=== PATIENT | female | born 1935 | race African-American/Black ===

== ENCOUNTER 2018-07-22 23:57 | Emergency (ER) | payer MEDICARE, MEDICAID ==
[~2018-07-22] VITALS: Ht 162.6 cm; Wt 54.5 kg
[~2018-07-22 23:57] MED LIST: AMLO5TAB88 PO; ASPI-1159 PO; ATOR10TA69 PO; BENA20TA10 PO; CLOP75TA16 PO; DIGO125T82 PO; FURO10VI3 PO; NITR0.4T SL; POTA20TA82 PO
[2018-07-23 01:58] LABS: BASOPHILS % 0.8 % (0.0-2.0); EOSINOPHILS % 1.6 % (0.0-5.0); HEMATOCRIT. 33.1 % (36.0-48.0); HEMOGLOBIN. 11.2 g/dL (12.0-16.0); LYMPHOCYTES % 24.9 % (20.0-50.0); MEAN CORPUSCULAR HEMOGLOBIN 33.6 pg (28.0-32.0); MEAN CORPUSCULAR VOLUME 98.8 fL (81.0-99.0); MEAN PLATELET VOLUME 8.6 fl (7.4-10.4); MONOCYTES % 7.9 % (2.0-8.0); NEUTROPHILS % 64.8 % (40.0-76.0); PLATELET 324 x1000/uL (130-400); RED BLOOD CELL COUNT 3.35 mill/uL (4.2-5.4); RED CELL DISTRIBUTION WIDTH 12.3 % (11.6-14.6)
[2018-07-23 02:03] LABS: PARTIAL THROMBOPLASTIN TIME 24.7 sec (23.4-31.0); PROTHROMBIN TIME 10.3 sec (9.1-11.1)
[2018-07-23 02:06] LABS: CHLORIDE 103 mEq/L (98-107)
[2018-07-23 02:11] LABS: ETHANOL BLOOD 45 mg/dL
[2018-07-23 04:12] VITALS: BP 118/87
== END 2018-07-23 04:18 | disposition left against medical advice (07) ==
LOC: ER 07-23 00:17
DX: F10.129 Alcohol abuse with intoxication, unspecified (principal); R40.4 Transient alteration of awareness; I69.351 Hemiplegia and hemiparesis following cerebral infarction affecting right dominant side; I25.2 Old myocardial infarction; J45.909 Unspecified asthma, uncomplicated; I11.0 Hypertensive heart disease with heart failure; I50.9 Heart failure, unspecified; I45.10 Unspecified right bundle-branch block; Y90.2 Blood alcohol level of 40-59 mg/100 ml; Z79.82 Long term (current) use of aspirin
CPT/HCPCS: 36415; 70450; 71045; 80053; 83880; 84484; 85025; 85610; 85730; 93005; 99285; G0482

== ENCOUNTER 2018-10-15 12:09 | Inpatient (IN) | payer MEDICARE, MEDICAID ==
[~2018-10-15] VITALS: Ht 157.5 cm; Wt 45.4 kg
[2018-10-15] MEDS ORDERED: ACETAMINOPHEN 325MG TABLET PO STA (14:19)
[2018-10-15] MEDS ORDERED: ASPIRIN 81MG TABLET PO ONE (14:30)
[2018-10-15 14:56] LABS: BASOPHILS % 0.7 % (0.0-2.0); EOSINOPHILS % 0.4 % (0.0-5.0); HEMATOCRIT. 33.3 % (36.0-48.0); HEMOGLOBIN. 11.3 g/dL (12.0-16.0); LYMPHOCYTES % 8.1 % (20.0-50.0); MEAN CORPUSCULAR HEMOGLOBIN 32.4 pg (28.0-32.0); MEAN CORPUSCULAR VOLUME 95.1 fL (81.0-99.0); MEAN PLATELET VOLUME 8.7 fl (7.4-10.4); MONOCYTES % 8.9 % (2.0-8.0); NEUTROPHILS % 81.9 % (40.0-76.0); PLATELET 314 x1000/uL (130-400); RED CELL DISTRIBUTION WIDTH 12.7 % (11.6-14.6)
[2018-10-15 15:06] LABS: CHLORIDE 103 mEq/L (98-107)
[2018-10-15 15:08] LABS: D-DIMER 0.67 mg/L FEU (<0.50); INR 1.1; PARTIAL THROMBOPLASTIN TIME 30.1 sec (23.4-31.0)
[2018-10-15 15:28] LABS: DIGOXIN 1.2 ng/mL (0.9-2.0)
[2018-10-15] MEDS ORDERED: IOHEXOL-350 100 ML BOTTLE ONE (16:43)
[2018-10-15] MEDS ORDERED: ONDANSETRON HCL 4MG/2ML INJ IV PRN (16:45)
[2018-10-15 17:41] LABS: CREATINE KINASE MB FRACTION 1.9 ng/mL (0.5-3.6)
[2018-10-15 21:00] VITALS: BP 118/68
[2018-10-15] MEDS: ATORVASTATIN CALCIUM 20MG TABLET PO SCH (21:58)
[2018-10-15] MEDS: ACETAMINOPHEN 325MG TABLET PO PRN (21:58)
[2018-10-15 22:00] VITALS: BP 130/80
[2018-10-15] MEDS: LORAZEPAM 1MG TABLET PO PRN (23:45)
[2018-10-16] VITALS (7 sets, daily range): BP systolic 100–183; BP diastolic 57–71
[2018-10-16] MEDS: HYDROCODONE/ACETAMINOPHEN 5/325MG TABLET PO PRN ×3 (00:04→18:43)
[2018-10-16] MEDS: ALLOPURINOL 100 MG TABLET PO SCH (09:33)
[2018-10-16] MEDS: CLOPIDOGREL 75MG TABLET PO SCH (09:33)
[2018-10-16] MEDS: ASPIRIN 81MG TABLET PO SCH (09:33)
[2018-10-16] MEDS: ENOXAPARIN 30MG/0.3ML SYR SUBCUT SCH (09:34)
[2018-10-16] MEDS: FUROSEMIDE 40MG/4ML VIAL IVP SCH ×3 (09:34→17:00)
[2018-10-16 10:54] LABS: MEAN CORPUSCULAR HEMOGLOBIN 31.8 pg (28.0-32.0); MEAN CORPUSCULAR VOLUME 95.6 fL (81.0-99.0); PLATELET 321 x1000/uL (130-400); RED BLOOD CELL COUNT 3.77 mill/uL (4.2-5.4); RED CELL DISTRIBUTION WIDTH 12.5 % (11.6-14.6)
[2018-10-16 11:28] LABS: CHLORIDE 107 mEq/L (98-107)
[2018-10-16 12:18] LABS: PLATELET ESTIMATE NORMAL
[2018-10-16] MEDS ORDERED: LIDOCAINE HCL 1% 20ML VIAL (Pyxis) INJ INFIL NR (15:30)
[2018-10-16] MEDS: ATORVASTATIN CALCIUM 20MG TABLET PO SCH (20:43)
[2018-10-17 00:10] VITALS: BP 130/56
[2018-10-17] MEDS: HYDROCODONE/ACETAMINOPHEN 5/325MG TABLET PO PRN ×3 (02:20→20:28)
[2018-10-17 04:54] VITALS: BP 138/69
[2018-10-17 06:40] LABS: CHLORIDE 105 mEq/L (98-107)
[2018-10-17 06:47] LABS: BASOPHILS % 0.8 % (0.0-2.0); EOSINOPHILS % 1.3 % (0.0-5.0); HEMATOCRIT. 29.1 % (36.0-48.0); HEMOGLOBIN. 9.9 g/dL (12.0-16.0); LYMPHOCYTES % 15.2 % (20.0-50.0); MEAN CORPUSCULAR HEMOGLOBIN 32.1 pg (28.0-32.0); MEAN CORPUSCULAR VOLUME 94.3 fL (81.0-99.0); MONOCYTES % 13.9 % (2.0-8.0); NEUTROPHILS % 68.8 % (40.0-76.0); PLATELET 320 x1000/uL (130-400); RED BLOOD CELL COUNT 3.09 mill/uL (4.2-5.4); RED CELL DISTRIBUTION WIDTH 12.5 % (11.6-14.6)
[2018-10-17 08:00] VITALS: BP 136/69
[2018-10-17] MEDS: CLOPIDOGREL 75MG TABLET PO SCH (10:54)
[2018-10-17] MEDS: ENOXAPARIN 30MG/0.3ML SYR SUBCUT SCH (10:54)
[2018-10-17] MEDS: FUROSEMIDE 40MG/4ML VIAL IVP SCH ×2 (10:54→20:21)
[2018-10-17] MEDS: ALLOPURINOL 100 MG TABLET PO SCH (10:54)
[2018-10-17] MEDS: ASPIRIN 81MG TABLET PO SCH (10:54)
[2018-10-17 12:00] VITALS: BP 141/70
[2018-10-17 16:00] VITALS: BP 122/57
[2018-10-17] MEDS ORDERED: CEFTRIAXONE 2 G PREMIX 50 ML IV SCH (17:00)
[2018-10-17] MEDS ORDERED: VANCOMYCIN 750 MG PREMIX 150 ML IV NR (18:00)
[2018-10-17 20:00] VITALS: BP 135/58
[2018-10-17] MEDS: METRONIDAZOLE 500MG TABLET PO SCH (20:21)
[2018-10-17] MEDS: ATORVASTATIN CALCIUM 20MG TABLET PO SCH (20:21)
[2018-10-18] VITALS: BP 125/56
[2018-10-18] MEDS: LORAZEPAM 1MG TABLET PO PRN ×2 (01:16→21:27)
[2018-10-18 04:00] VITALS: BP 148/66
[2018-10-18] MEDS ORDERED: VANCOMYCIN 500 MG PREMIX 100 ML IV SCH (06:00)
[2018-10-18 08:00] VITALS: BP 143/70
[2018-10-18 08:14] LABS: BASOPHILS % 0.7 % (0.0-2.0); EOSINOPHILS % 1.6 % (0.0-5.0); HEMATOCRIT. 30.7 % (36.0-48.0); HEMOGLOBIN. 10.5 g/dL (12.0-16.0); MEAN CORPUSCULAR HEMOGLOBIN 32.5 pg (28.0-32.0); MEAN CORPUSCULAR VOLUME 94.8 fL (81.0-99.0); MONOCYTES % 11.7 % (2.0-8.0); PLATELET 352 x1000/uL (130-400); RED BLOOD CELL COUNT 3.24 mill/uL (4.2-5.4); RED CELL DISTRIBUTION WIDTH 12.4 % (11.6-14.6)
[2018-10-18 09:02] LABS: CHLORIDE 102 mEq/L (98-107)
[2018-10-18] MEDS: CLOPIDOGREL 75MG TABLET PO SCH (10:44)
[2018-10-18] MEDS: METRONIDAZOLE 500MG TABLET PO SCH ×2 (10:44→20:17)
[2018-10-18] MEDS: ENOXAPARIN 30MG/0.3ML SYR SUBCUT SCH (10:44)
[2018-10-18] MEDS: ASPIRIN 81MG TABLET PO SCH (10:44)
[2018-10-18] MEDS: ALLOPURINOL 100 MG TABLET PO SCH (10:45)
[2018-10-18] MEDS: FUROSEMIDE 40MG TABLET PO SCH (10:45)
[2018-10-18] MEDS: LISINOPRIL 2.5MG TABLET PO SCH (10:48)
[2018-10-18 12:00] VITALS: BP 108/52
[2018-10-18] MEDS: VANCOMYCIN 500 MG PREMIX 100 ML IV SCH (16:05)
[2018-10-18] MEDS: CEFTRIAXONE 2 G in DEXTROSE 5% WATER 50 ML IV SCH (17:00)
[2018-10-18 20:00] VITALS: BP 118/50
[2018-10-18] MEDS: ATORVASTATIN CALCIUM 20MG TABLET PO SCH (20:17)
[2018-10-18] MEDS: CARVEDILOL 6.25 MG TABLET PO SCH (20:18)
[2018-10-18] MEDS: HYDROCODONE/ACETAMINOPHEN 5/325MG TABLET PO PRN (20:54)
[2018-10-19] VITALS: BP 99/57
[2018-10-19] MEDS: VANCOMYCIN 500 MG PREMIX 100 ML IV SCH ×2 (00:03→12:19)
[2018-10-19 04:00] VITALS: BP 101/56
[2018-10-19 08:00] VITALS: BP 125/54
[2018-10-19] MEDS: FUROSEMIDE 40MG TABLET PO SCH (09:42)
[2018-10-19] MEDS: CARVEDILOL 6.25 MG TABLET PO SCH ×2 (09:42→23:34)
[2018-10-19] MEDS: ASPIRIN 81MG TABLET PO SCH (09:42)
[2018-10-19] MEDS: ENOXAPARIN 30MG/0.3ML SYR SUBCUT SCH (09:42)
[2018-10-19] MEDS: LISINOPRIL 2.5MG TABLET PO SCH ×2 (09:42→17:42)
[2018-10-19] MEDS: CLOPIDOGREL 75MG TABLET PO SCH (09:42)
[2018-10-19] MEDS: METRONIDAZOLE 500MG TABLET PO SCH ×2 (09:42→23:34)
[2018-10-19] MEDS: ALLOPURINOL 100 MG TABLET PO SCH (09:43)
[2018-10-19 12:00] VITALS: BP 130/68
[2018-10-19] MEDS ORDERED: LIDOCAINE HCL 1% 20ML VIAL (Pyxis) INJ ONE (14:15)
[2018-10-19 16:00] VITALS: BP 115/50
[2018-10-19] MEDS: CEFTRIAXONE 2 G in DEXTROSE 5% WATER 50 ML IV SCH (17:41)
[2018-10-19 20:00] VITALS: BP 131/59
[2018-10-19] MEDS: HYDROCODONE/ACETAMINOPHEN 5/325MG TABLET PO PRN (20:16)
[2018-10-19] MEDS: ATORVASTATIN CALCIUM 20MG TABLET PO SCH (23:34)
[2018-10-20] VITALS: BP 123/37
[2018-10-20 04:00] VITALS: BP 97/50
[2018-10-20 08:00] VITALS: BP 118/84
[2018-10-20] MEDS: ASPIRIN 81MG TABLET PO SCH (09:35)
[2018-10-20] MEDS: ALLOPURINOL 100 MG TABLET PO SCH (09:35)
[2018-10-20] MEDS: CLOPIDOGREL 75MG TABLET PO SCH (09:35)
[2018-10-20] MEDS: LISINOPRIL 2.5MG TABLET PO SCH ×2 (09:35→16:47)
[2018-10-20] MEDS: METRONIDAZOLE 500MG TABLET PO SCH ×2 (09:35→20:39)
[2018-10-20] MEDS: ENOXAPARIN 30MG/0.3ML SYR SUBCUT SCH (09:35)
[2018-10-20] MEDS: FUROSEMIDE 40MG TABLET PO SCH (09:35)
[2018-10-20] MEDS: CARVEDILOL 6.25 MG TABLET PO SCH ×2 (09:36→21:00)
[2018-10-20] MEDS: HYDROCODONE/ACETAMINOPHEN 5/325MG TABLET PO PRN (10:49)
[2018-10-20 12:00] VITALS: BP 102/66
[2018-10-20 16:00] VITALS: BP 98/41
[2018-10-20] MEDS: CEFTRIAXONE 2 G in DEXTROSE 5% WATER 50 ML IV SCH (16:51)
[2018-10-20 20:00] VITALS: BP 102/42
[2018-10-20] MEDS: ATORVASTATIN CALCIUM 20MG TABLET PO SCH (20:38)
[2018-10-20] MEDS: CEFTRIAXONE SODIUM 1 G/VIAL IM SCH (20:39)
[2018-10-20] MEDS: LIDOCAINE HCL/PF 1% 10 MG/ML 5ML VIAL IJ SCH (20:39)
[2018-10-21] VITALS: BP 113/52
[2018-10-21] MEDS ORDERED: LORAZEPAM 1MG TABLET PO PRN (00:45)
[2018-10-21 04:00] VITALS: BP 107/61
[2018-10-21 08:00] VITALS: BP 137/57
[2018-10-21] MEDS: ALLOPURINOL 100 MG TABLET PO SCH (10:05)
[2018-10-21] MEDS: FUROSEMIDE 40MG TABLET PO SCH (10:05)
[2018-10-21] MEDS: LISINOPRIL 2.5MG TABLET PO SCH (10:05)
[2018-10-21] MEDS: ENOXAPARIN 30MG/0.3ML SYR SUBCUT SCH (10:06)
[2018-10-21] MEDS: CARVEDILOL 6.25 MG TABLET PO SCH (10:06)
[2018-10-21] MEDS: CLOPIDOGREL 75MG TABLET PO SCH (10:07)
[2018-10-21] MEDS: ASPIRIN 81MG TABLET PO SCH (10:07)
[2018-10-21] MEDS: METRONIDAZOLE 500MG TABLET PO SCH (10:08)
[2018-10-21] MEDS: ACETAMINOPHEN 325MG TABLET PO PRN (10:33)
[2018-10-21] MEDS: LIDOCAINE HCL/PF 1% 10 MG/ML 5ML VIAL IJ SCH (10:33)
[2018-10-21] MEDS: CEFTRIAXONE SODIUM 1 G/VIAL IM SCH (10:34)
[2018-10-21 12:00] VITALS: BP 108/55
[2018-10-21 15:59] VITALS: BP 116/46
[2018-10-21 16:00] VITALS: BP 116/46
== END 2018-10-21 18:58 | disposition home health service (06) | DRG 539 ==
LOC: ER 12:09 → EDBEDREQ 17:18 → ENRESERV 19:49 → 7WST 20:37
PROVIDERS: ADMIT Internal Medicine; ATTEND Internal Medicine
PROC: 0HDRXZZ Extraction of Toe Nail, External Approach (ICD-10-PCS; principal; 2018-10-16)
PROC: 0Y9M0ZZ Drainage of Right Foot, Open Approach (ICD-10-PCS; 2018-10-16)
PROC: 02HV33Z Insertion of Infusion Device into Superior Vena Cava, Percutaneous Approach (ICD-10-PCS; 2018-10-18)
PROC: B548ZZA Ultrasonography of Superior Vena Cava, Guidance (ICD-10-PCS; 2018-10-18)
PROC: B5181ZA Fluoroscopy of Superior Vena Cava using Low Osmolar Contrast, Guidance (ICD-10-PCS; 2018-10-18)
PROC: 02HV33Z Insertion of Infusion Device into Superior Vena Cava, Percutaneous Approach (ICD-10-PCS; 2018-10-19)
PROC: B548ZZA Ultrasonography of Superior Vena Cava, Guidance (ICD-10-PCS; 2018-10-19)
PROC: B5181ZA Fluoroscopy of Superior Vena Cava using Low Osmolar Contrast, Guidance (ICD-10-PCS; 2018-10-19)
DX: M86.8X7 Other osteomyelitis, ankle and foot (principal); I50.23 Acute on chronic systolic (congestive) heart failure; L02.611 Cutaneous abscess of right foot; E44.1 Mild protein-calorie malnutrition; I42.9 Cardiomyopathy, unspecified; Z68.1 Body mass index [BMI] 19.9 or less, adult; J44.9 Chronic obstructive pulmonary disease, unspecified; S99.921A Unspecified injury of right foot, initial encounter; X58.XXXA Exposure to other specified factors, initial encounter; F03.90 Unspecified dementia, unspecified severity, without behavioral disturbance, psychotic disturbance, mood disturbance, and anxiety; I73.9 Peripheral vascular disease, unspecified; R07.89 Other chest pain; F10.10 Alcohol abuse, uncomplicated; D64.9 Anemia, unspecified; I08.1 Rheumatic disorders of both mitral and tricuspid valves; I11.0 Hypertensive heart disease with heart failure; I25.10 Atherosclerotic heart disease of native coronary artery without angina pectoris; I27.20 Pulmonary hypertension, unspecified; M10.9 Gout, unspecified; Z79.02 Long term (current) use of antithrombotics/antiplatelets; Z86.73 Personal history of transient ischemic attack (TIA), and cerebral infarction without residual deficits; Z87.891 Personal history of nicotine dependence; Z90.49 Acquired absence of other specified parts of digestive tract; Z79.82 Long term (current) use of aspirin; Z79.899 Other long term (current) drug therapy; Y93.89 Activity, other specified; Y92.89 Other specified places as the place of occurrence of the external cause; Y99.8 Other external cause status
CPT/HCPCS: 36415; 36569; 71045; 71275; 73630; 73721; 76937; 77001; 80048; 80162; 80202; 82550; 82553; 83880; 84484; 84550; 85379; 85651; 86140; 87070; 87075; 87077; 93005; 93306; 93923; 93970; 97162; 97530; 99285; C1725; C1769; C1893; J0696; J1650; J1940; J3370; J3490; J7060; Q9967

== ENCOUNTER 2018-11-26 12:10 | Inpatient (IN) | payer MEDICARE, MEDICAID ==
[~2018-11-26] VITALS: Ht 165.1 cm; Wt 41.0 kg
[2018-11-26] MEDS ORDERED: SODIUM CHLORIDE 0.9% 1,000 ML IV ONE ×2 (13:50→16:16)
[2018-11-26] MEDS ORDERED: ASPIRIN 81MG TABLET PO ONE (14:00)
[2018-11-26 14:18] LABS: CHLORIDE 106 mEq/L (98-107)
[2018-11-26 14:27] LABS: HEMOGLOBIN. 10.8 g/dL (12.0-16.0); MEAN CORPUSCULAR HEMOGLOBIN 31.1 pg (28.0-32.0); MEAN CORPUSCULAR VOLUME 94.9 fL (81.0-99.0); MEAN PLATELET VOLUME 9.3 fl (7.4-10.4); PLATELET 229 x1000/uL (130-400); RED BLOOD CELL COUNT 3.48 mill/uL (4.2-5.4); RED CELL DISTRIBUTION WIDTH 14.8 % (11.6-14.6)
[2018-11-26 15:03] LABS: ATYPICAL LYMPHOCYTES 1; PLATELET ESTIMATE NORMAL
[2018-11-26] MEDS ORDERED: CEFTRIAXONE 1 G PREMIX 50 ML IV ONE (16:30)
[2018-11-26] MEDS ORDERED: AZITHROMYCIN 500 MG in DEXT 5% WATER 250 ML IV ONE (16:30)
[2018-11-26] MEDS ORDERED: ACETAMINOPHEN 325MG TABLET PO PRN (20:15)
[2018-11-26] MEDS ORDERED: ONDANSETRON HCL 4MG/2ML INJ IV PRN (20:15)
[2018-11-26] MEDS ORDERED: IPRATROPIUM/ALBUTEROL 0.5-3(2.5)MG/3ML NEB HHN PRN (20:15)
[2018-11-26 22:12] LABS: CREATINE KINASE MB FRACTION 2.7 ng/mL (0.5-3.6)
[2018-11-27 03:20] VITALS: BP 152/57
[2018-11-27 04:00] VITALS: BP 152/57
[2018-11-27] MEDS ORDERED: PNEUMOCOCCAL 23-VAL P-SAC VAC 0.5 ML IM ONE (08:45)
[2018-11-27] MEDS ORDERED: ENOXAPARIN 40MG/0.4ML SYR SUBCUT SCH (09:00)
[2018-11-27 09:46] LABS: HEMOGLOBIN. 10.2 g/dL (12.0-16.0); MEAN CORPUSCULAR VOLUME 94.4 fL (81.0-99.0); MEAN PLATELET VOLUME 8.7 fl (7.4-10.4); PLATELET 210 x1000/uL (130-400); RED BLOOD CELL COUNT 3.29 mill/uL (4.2-5.4); RED CELL DISTRIBUTION WIDTH 14.3 % (11.6-14.6)
[2018-11-27] MEDS: ASPIRIN 81MG TABLET PO SCH (11:02)
[2018-11-27 11:03] LABS: CHLORIDE 109 mEq/L (98-107)
[2018-11-27 12:13] VITALS: BP 114/78
[2018-11-27 12:48] LABS: PLATELET ESTIMATE NORMAL
[2018-11-27] MEDS ORDERED: POTASSIUM CHLORIDE 20MEQ TABLET SR PO NR ×3 (13:00→20:00)
[2018-11-27 15:05] LABS: CLARITY URINE TURBID (CLEAR); COLOR URINE AMBER (YELLOW); KETONES URINE TRACE (NEGATIVE); LEUKOCYTE ESTERASE URINE NEGATIVE (NEGATIVE); NITRITE URINE NEGATIVE (NEGATIVE); OCCULT BLOOD URINE NEGATIVE (NEGATIVE); PH URINE 5.5 (4.5-8.0); PROTEIN URINE 1+ (NEGATIVE); SPECIFIC GRAVITY URINE 1.021 (1.005-1.030); UROBILINOGEN URINE 0.2 E.U./dL (0.2-1.0)
[2018-11-27] MEDS ORDERED: MEDICATION NOT ON FORMULARY EA (Clopidogrel Bisulfate (Plavix) 75 MG) PO SCH (15:30)
[2018-11-27 15:49] VITALS: BP 91/67
[2018-11-27] MEDS ORDERED: RIFA300C4 MT (15:55)
[2018-11-27] MEDS ORDERED: METO-385 PO (15:55)
[2018-11-27] MEDS ORDERED: LEVO750T46 MT (15:55)
[2018-11-27] MEDS: CLOPIDOGREL 75MG TABLET PO SCH (15:59)
[2018-11-27] MEDS ORDERED: LEVOFLOXACIN 250MG TABLET PO SCH (18:00)
[2018-11-27] MEDS: MAGNESIUM CHLORIDE 64MG TABLET SR PO SCH (18:31)
[2018-11-27 20:00] VITALS: BP 128/77
[2018-11-27] MEDS ORDERED: ATORVASTATIN CALCIUM 10MG TABLET PO SCH (21:00)
[2018-11-28] VITALS: BP 139/76
[2018-11-28 04:00] VITALS: BP 131/63
[2018-11-28 06:21] LABS: BASOPHILS % 0.4 % (0.0-2.0); EOSINOPHILS % 0.3 % (0.0-5.0); HEMATOCRIT. 29.3 % (36.0-48.0); HEMOGLOBIN. 9.7 g/dL (12.0-16.0); MEAN CORPUSCULAR HEMOGLOBIN 31.3 pg (28.0-32.0); MEAN CORPUSCULAR VOLUME 94.4 fL (81.0-99.0); MONOCYTES % 7.6 % (2.0-8.0); NEUTROPHILS % 81.7 % (40.0-76.0); PLATELET 237 x1000/uL (130-400); RED BLOOD CELL COUNT 3.11 mill/uL (4.2-5.4); RED CELL DISTRIBUTION WIDTH 14.8 % (11.6-14.6)
[2018-11-28 06:37] LABS: CHLORIDE 113 mEq/L (98-107)
[2018-11-28 08:00] VITALS: BP 142/84
[2018-11-28] MEDS ORDERED: ENOXAPARIN 30MG/0.3ML SYR SUBCUT SCH (09:00)
[2018-11-28] MEDS ORDERED: RIFAMPIN 300MG CAPSULE PO SCH (09:00)
[2018-11-28] MEDS ORDERED: LORAZEPAM 0.5MG TABLET PO PRN (09:30)
[2018-11-28] MEDS ORDERED: LEVOFLOXACIN 500MG TABLET PO SCH (11:00)
[2018-11-28] MEDS ORDERED: REGADENOSON 0.4 MG/5 ML IV ONE ×2 (11:56→15:15)
[2018-11-28] MEDS: CLOPIDOGREL 75MG TABLET PO SCH (13:03)
[2018-11-28] MEDS: MAGNESIUM CHLORIDE 64MG TABLET SR PO SCH ×2 (13:03→17:19)
[2018-11-28] MEDS: ASPIRIN 81MG TABLET PO SCH (13:03)
[2018-11-28 19:16] VITALS: BP 142/84
[2018-11-28 20:00] VITALS: BP 126/71
[2018-11-28] MEDS ORDERED: METOPROLOL TARTRATE 25MG TABLET PO SCH (21:00)
== END 2018-11-28 21:00 | disposition home health service (06) | DRG 206 ==
LOC: ER 12:10 → 6WST 17:06 → ENRESERV 22:00
PROVIDERS: ADMIT Internal Medicine; ATTEND Internal Medicine
DX: M94.0 Chondrocostal junction syndrome [Tietze] (principal); I50.22 Chronic systolic (congestive) heart failure; I42.9 Cardiomyopathy, unspecified; I47.2 Ventricular tachycardia; E44.0 Moderate protein-calorie malnutrition; Z68.1 Body mass index [BMI] 19.9 or less, adult; F03.90 Unspecified dementia, unspecified severity, without behavioral disturbance, psychotic disturbance, mood disturbance, and anxiety; I11.0 Hypertensive heart disease with heart failure; Z86.73 Personal history of transient ischemic attack (TIA), and cerebral infarction without residual deficits; I27.20 Pulmonary hypertension, unspecified; I08.1 Rheumatic disorders of both mitral and tricuspid valves; I25.10 Atherosclerotic heart disease of native coronary artery without angina pectoris; L97.519 Non-pressure chronic ulcer of other part of right foot with unspecified severity; Z82.49 Family history of ischemic heart disease and other diseases of the circulatory system; Z87.891 Personal history of nicotine dependence; Z90.49 Acquired absence of other specified parts of digestive tract
CPT/HCPCS: 36415; 71045; 73630; 78452; 80048; 82550; 82553; 83036; 83605; 83880; 84484; 93005; 93017; 96361; 96365; 96367; 97161; 99291; A6261; A9500; J0456; J0696; J1650; J2785; J7030; J7060